=== PATIENT | male | born 1960 | race Caucasian/White ===

== ENCOUNTER 2017-11-28 16:25 | Emergency (ER) | payer MEDICARE ==
[2016-01-03 15:28] VITALS: BMI 29.7
[2017-11-28 17:00] LABS: BASOPHILS 0.5 % (0-2); EOSINOPHILS 1.9 % (0-7); HEMATOCRIT 46.8 % (42.0-54.0); HEMOGLOBIN 15.8 g/dL (13.5-17.5); IMMATURE GRANULOCYTES 0.2 % (0-5); LYMPHOCYTES 22.8 % (15-50); MCH 30.6 pg (26.0-34.0); MCHC 33.8 g/dL (31.0-37.0); MCV 90.7 fL (80.0-100.0); MEAN PLATELET VOLUME 10.3 fL (7.4-10.4); MONOCYTES 18.6 % (2-11); RBC 5.16 10x6/uL (4.20-6.10); RDW 13.2 % (11.5-14.5); WBC 4.3 10x3/uL (4.8-10.8)
[2017-11-28 17:13] LABS: APTT 27.2 SECONDS (22.8-39.4); INR 0.81 (0.85-1.17); PROTIME 10.9 SECONDS (11.6-15.0)
[2017-11-28 17:15] LABS: D-DIMER-QUANTITATIVE 0.69 ug/mLFEU (0.20-0.54); PLATELET COUNT 123 10x3/uL (130-400)
[2017-11-28 17:19] LABS: ALBUMIN 3.1 g/dL (3.4-5.0); ALKALINE PHOSPHATASE 53 U/L (46-116); ALT (SGPT) 20 U/L (10-68); CALC OSMOLALITY 283 mosm/kg (275-300); CALCIUM 7.6 mg/dL (8.5-10.1); CARBON DIOXIDE 24.9 mmol/L (21.0-32.0); CHLORIDE - SERUM 104 mmol/L (98-107); CREATININE - SERUM 1.2 mg/dL (0.6-1.3); POTASSIUM - SERUM 3.9 mmol/L (3.5-5.1); PROTEIN - SERUM 6.5 g/dL (6.4-8.2); SODIUM 140 mmol/L (136-145); UREA NITROGEN 17 mg/dL (7-18); eGFR NON AFRICAN AMERICAN 66 mL/min (90-120)
[2017-11-28 17:24] LABS: GLUCOSE 145 mg/dL (74-106)
[2017-11-28 17:30] LABS: CHOL - HDL RATIO 1.8 ratio (2.3-4.9); CHOLESTEROL, TOTAL 130 mg/dL (0-200); CREATINE KINASE 249 UL (21-232); HDL CHOLESTEROL 74 mg/dL (32-96); LDL CHOLESTEROL 24 mg/dL (0-100); LDL-HDL RATIO 0.3 ratio (1.5-3.5); TRIGLYCERIDE 161 mg/dL (30-200); TROPONIN-I < 0.017 ng/mL (0.000-0.060)
== END 2017-11-28 20:15 | disposition home or self-care (01) ==
LOC: D.ER 16:25
PROVIDERS: Family Medicine
DX: R07.81 Pleurodynia (principal); R05 Cough; F17.200 Nicotine dependence, unspecified, uncomplicated; R00.0 Tachycardia, unspecified

== ENCOUNTER → 2020-04-11 12:08 | Outpatient (CLI) | payer MEDICARE ==
[2016-01-03 15:28] VITALS: BMI 29.7
[~2020-04-11 12:08] MED LIST: BAYER CHEWABLE81 MG PO; HYDROCODON-ACE1 EA10 PO; VITAMIN B12 PO
== END | disposition home or self-care (01) ==
LOC: D.LABREF 12:08
PROVIDERS: ATTEND Neurological Surgery
DX: Z11.59 Encounter for screening for other viral diseases (principal)

== ENCOUNTER 2020-04-13 08:10 | Day surgery (SDC) | payer SELFPAY ==
[~2020-04-13] VITALS: Ht 172.7 cm; Wt 111.6 kg
--- NOTE | ~2020-04-13 | OP ---
PATIENT NAME: MARBIN ROWLAND MEDICAL RECORD: [id number] :58 LOCATION:[facility] ADMISSION DATE: SURGEON: JACKY SPANN MD DATE OF OPERATION: 04/13/2020 DATE OF SERVICE: 04/13/2020 PREOPERATIVE DIAGNOSES: Right L4-L5 and L5-S1 lumbar spinal stenosis and foraminal stenosis. POSTOPERATIVE DIAGNOSES: Right L4-L5 and L5-S1 lumbar spinal stenosis and foraminal stenosis. PROCEDURE: Lumbar laminectomy, medial facetectomy, and foraminotomy L4-L5 and L5-S1 on the right with METRx retractor. SURGEON: Jacky Spann MD ASTRO TECHNICIAN: Juan Le. DESCRIPTION AND TECHNIQUE: After induction of general endotracheal anesthesia, the patient was rolled prone on a Amado frame. Lumbar spine was prepped and draped in usual sterile fashion. Fluoroscopic x-ray and spinal needle localized the L4-L5 interspace on the right. Juan Le helped position the patient on the table as well as the Amado frame. Series of dilators were used to advance a METRx retractor at L4-L5 interspace on the right side. The level was confirmed with fluoroscopic x-ray. Next, a microscope and Midas Louis drill were used to perform laminotomy, medial facetectomy and foraminotomy at L4-L5 and L5-S1 on the right. Hypertrophied ligamentum flavum was removed with Cloward rongeurs. Excellent decompression at L4, L5 and S1 nerve roots was obtained. During the procedure, Juan Le assisted with suction, irrigation and hemostasis. The METRx retractor was removed. The fascia was closed with 2-0 Vicryl suture, the subdermal layer was closed with 3-0 Vicryl suture. The skin was closed with raul. A sterile dressing was applied to the wound. The patient was awakened in good condition and taken to recovery. All counts were reported as correct. Estimated blood loss was minimal. TRANSINT:[id number] Voice Confirmation ID: [id number] DOCUMENT ID: [id number] JACKY SPANN MD CC: [id number] DICTATION DATE: 04/26/20 1013 HEEL COVER SOFTENER: 04/26/20 1041 [facility] 04/13/20 [place] [address]
[~2020-04-13 08:10] MED LIST changes: -HYDROCODON-ACE1 EA10 PO
[2020-04-13 08:38] VITALS: BP 126/71; Ht 172.7 cm; Wt 111.6 kg
--- NOTE | 2020-04-13 15:19 | NUR ---
POSITIONED ON MONET BACK FRAME ALL AREAS PADDED AND SECURED, GENITALS CHECKED AND FREE WITH NO IMPINGEMENTS, PARISH.
[2020-04-13] MEDS ORDERED: HYDROCODON-ACE1 EA10 PO (15:52)
--- NOTE | 2020-04-13 16:21 | NUR ---
OPA IN AIRWAY ON ADMIT
--- NOTE | 2020-04-13 16:41 | NUR ---
NO NUMBNESS OT TINGLING REPORTED EQUAL STRENGHT BOTH LOWER EXTREMETIES
--- NOTE | 2020-04-13 17:09 | NUR ---
1630 RECIEVED URINAL AND PT VOIDED 180ML URINE. DENIES PAIN AT THIS TIME. DR PIERSON AWARE OF PTS NUMBNESS TO RIGHT FOOT
--- NOTE | 2020-04-13 17:12 | NUR ---
1630 DR NAYLOR AWARE OF PTS NUMBNESS TO RIGHT FOOT. DRESSING CDI. VOIDED IN URINAL 180ML.
--- NOTE | 2020-04-13 18:29 | NUR ---
1730 IV REMOVED AND PT VOIDED X2.
== END 2020-04-13 17:50 | disposition home or self-care (01) ==
LOC: D.OPS 08:10 → D.PAN 11:00 → D.OPS 11:30 → D.PAN 11:50 → D.OPS 15:00 → D.PAN 15:00 → D.OPS 17:50
PROVIDERS: ATTEND Neurological Surgery
DX: M48.061 Spinal stenosis, lumbar region without neurogenic claudication (principal); M54.16 Radiculopathy, lumbar region